=== PATIENT | female | born 1945 | race Caucasian/White ===

== ENCOUNTER → 2017-06-18 | Day surgery (SDC) | payer MEDICARE ==
[~2017-06-18] VITALS: Ht 167.6 cm; Wt 84.0 kg
[~2017-06-18] MED LIST: ASPI-110 PO; ATOR20TA15 PO; BIOT50006 PO; CHLORHEXIDINE GLUCONATE 2 % 1 PACK (2 CLOTHS) TOPICAL PRN; DIGO0.12 PO; DIOV320T PO; ESSE250T PO; FISH1000 PO; FLUD.1 PO; GABA600T PO; GLIP5TAB8 PO; HYDR-3801 PO; INSULIN HUMAN REGULAR 1,000 UNITS/10 ML VIAL SQ PRN; LABE300T PO; LACTATED RINGER'S 1000 ML IV PRN; LANTUS2P SQ; LIDOCAINE HCL 1% 20 ML VIAL OTHER ONE; METOPROLOL TARTRATE 25 MG TAB PO PRN; ONE-TAB14 PO; POVIDONE IODINE 5% (ANTISEPSIS KIT) 4 APPLICATIONS EACH NARE PRN; PROPOFOL 200 MG/20 ML AMP IV ONE; SODIUM CHLORID 0.9% 500 ML IV PRN; SOTA80TA PO; VANCOMYCIN HCL 1000 MG ON-CALL/NS 250 ML IV PRN; VITA100064 PO; WARF-20 PO; ceFAZolin 1,000 MG/NS 100 ML IV PRN
[2017-06-18 09:50] LABS: APTT (PATIENT) 25.7 SEC (24.3-30.1); INTERNATIONAL NORMALIZED RATIO 1.2 RATIO; PROTHROMBIN TIME - PATIENT 12.8 SEC (9.8-11.6)
[2017-06-18 10:28] VITALS: BP 158/55; PULSE 59; RESP 18; TEMP 98; O2SAT 98
[2017-06-18 12:50] VITALS: BP 178/71; PULSE 60; RESP 16; TEMP 97.3; O2SAT 98
--- NOTE | 2017-06-18 14:29 | EKG ---
Date Performed: 06/18/2017 Time Performed: 10:42:36 PTAGE: 72 years EKG: SINUS BRADYCARDIA WITH FIRST DEGREE AV BLOCK ABNORMAL ECG NO PREVIOUS TRACING DOCTOR: Jules Diamond Interpretating Date/Time 06/18/2017 14:26:40
--- NOTE | 2017-06-18 15:07 | MP ---
cc: ANÍBAL PARKER M.D., VARTAN MD CUNHA,MINDY Cordero M.D. DATE OF SURGERY: 06/18/2017 PREOPERATIVE DIAGNOSIS Left temporal headache, rule out temporal arteritis. POSTOPERATIVE DIAGNOSIS Left temporal headache, rule out temporal arteritis. ANESTHESIA TIVA. SURGEON Erasto. ESTIMATED BLOOD LOSS Less than 10 mL. FLUIDS 600 mL crystalloid. PROCEDURE Left temporal artery biopsy. SPECIMEN Left temporal artery to pathology. PROCEDURE IN DETAIL The patient was seen in the holding area and the left side marked. The patient was taken to the operating room and placed on the operating table in the supine position. IV sedation was begun and the left sideburn was shaved and the left side of the scalp in the preauricular region prepped and draped. A timeout was taken, confirming the correct patient, site and procedure to be performed. Skin and subcutaneous tissue was infiltrated with local anesthetic and a longitudinal incision was made in the preauricular area. Dissection was carried down with electrocautery through the subcutaneous tissue. Cautery was set aside and the remainder of the dissection around the artery was performed with sharp dissection and gentle blunt dissection. The Doppler probe identified the artery and a small branch was ligated with silk suture and divided. The artery was dissected proximally and distally so that at least 3-4 cm of arterial length was achieved. The artery was clamped proximally and distally and sharply excised. This was passed off the table. The stumps were ligated with 4-0 silk suture. The wound was reexamined and found to be clean and dry. The wound was closed in two layers with interrupted 3-0 Vicryl suture and 5-0 PDS in a running subcuticular fashion. The wound was dressed with Steri-Strips. The patient was taken back to the recovery room in stable condition. Sponge, needle and instrument counts were reported to be correct. The patient tolerated the procedure well. MD ANDREW Pompa/VAN /12:41 PM /2:46 PM
== END | disposition home or self-care (01) ==
LOC: PHSDC 08:43
PROVIDERS: ATTEND Surgery Trauma Surgery
DX: R51 Headache (principal); R00.1 Bradycardia, unspecified; I44.0 Atrioventricular block, first degree; G62.9 Polyneuropathy, unspecified; M54.2 Cervicalgia; E11.9 Type 2 diabetes mellitus without complications; I12.9 Hypertensive chronic kidney disease with stage 1 through stage 4 chronic kidney disease, or unspecified chronic kidney disease; N18.9 Chronic kidney disease, unspecified; I25.10 Atherosclerotic heart disease of native coronary artery without angina pectoris; E66.9 Obesity, unspecified; Z68.29 Body mass index [BMI] 29.0-29.9, adult; Z79.01 Long term (current) use of anticoagulants; Z79.82 Long term (current) use of aspirin; Z79.4 Long term (current) use of insulin; Z79.899 Other long term (current) drug therapy
CPT/HCPCS: 00352; 36415; 37609; 82948; 85610; 85730; 88304; 93005; J0690; J3370; J7050; J7120